=== PATIENT | female | born 1955 | race Caucasian/White ===

== ENCOUNTER 2024-11-08 17:57 | Emergency (ER) | payer MEDICARE, MEDICAID, OTHER ==
[~2024-11-08] VITALS: Ht 167.6 cm; Wt 64.3 kg
[2024-11-08 17:59] VITALS: TEMP 97.6
[2024-11-08] MEDS: normal saline 1000ML IV soln IVB ONE (18:20)
--- NOTE | 2024-11-08 18:26 | Physician Documentation ---
History of Present Illness ~ Chief Complaint: Syncope Stated Complaint: NEAR SYNCOPE Time Seen by MD: 18:12 OK to notify your PCP?: Yes HPI This is a pleasant 69-year-old female with a prior history of myocardial infarction, hypotension, who presents for evaluation of near syncopal episode. She states that she was sitting in the chair, resting, stood up and I just went down and pulled. She did not actually lose consciousness. She reports that her legs felt like jelly. The particular palliating or aggravating factors. Did report shortness a breath accompanying this event. She normally is not experiencing shortness a breath. It has no chest pain. He states that she has not had a chest pain with her prior myocardial infarctions but are the jaw pain. She is not experiencing jaw pain today similar to that, but rather experiencing jaw pain from pulled teeth because she is getting false teeth now. Denies any fever, but does report nausea vomiting diarrhea for the last several days. Reports diffuse abdominal pain. Denies any infectious exposure. She denies any concerns for tobacco, alcohol or illicit substances use Medication Reconciliation Allergies: Coded Allergies: gabapentin (Verified Allergy, Mild, 11/08/24) Review of Systems ROS 10 point review of systems was performed and unless noted above in HPI is negative for acute process/complaint. Physical Exam Vital Signs: Temperature: 97.6, Heart Rate: 61, Respiratory Rate: 18, BP: 132/84, Pulse Oximetry: 98, Weight: 64.300 Physical Exam GENERAL: Awake, alert, oriented, GCS 15, no apparent distress, non-toxic appearing, answers questions, follows commands appropriately. Examined in bed 1. HEENT: Atraumatic, normocephalic, pupils equal, extraocular muscles intact, sclerae anicteric, mucus membranes moist, oropharynx is clear, no stridor. NECK: supple, full active range of motion, trachea midline, no thyromegaly, no lymphadenopathy, no JVD. CARDIOVASCULAR: regular rate/rhythm, no murmurs/gallops/rubs, Pulses are 2+ in all extremities and symmetric. Capillary refill less than 2 seconds. PULMONARY: Nonlabored, good air movement ,no respiratory distress, speaking in full sentences, clear to auscultation bilaterally, no wheezing, no ronchi, no rales, no accessory muscle use. GASTROINTESTINAL: Soft, diffusely tender to palpation, non-distended, normal active bowel sounds, no organomegaly, no pulsatile masses, no CVA tenderness. NEUROLOGIC: Lucid with normal mental status. Normal facial symmetry. Moves all extremities symmetrically and with purpose. No truncal ataxia. Speech is fluid without evidence of dysarthria or aphasia, no focal deficits appreciated. MUSCULOSKELETAL: There is full range of motion of all extremities. There is no joint pain or joint swelling or joint erythema. There is no muscle pain or tenderness or swelling. EXTREMITIES: warm, well-perfused, no cyanosis, no clubbing, no edema, no acute deformities. Skin: warm, dry, no rashes or lesions, no jaundice, no petechiae orpurpura. No ecchymosis. PSYCHIATRIC: Normal affect, normal insight, normal concentration. Focused exam: That there is no guarding or rebound Progress Results/Orders Results/Orders Orders - JOSE CASSIDY DO Chest,Single View (11/08/24 18:32) Monitor (11/08/24 18:17) Saline Lock (11/08/24 18:17) Cult Urine + [place] [address] (11/08/24 23:06) Completed Orders - JOSE CASSIDY DO Electrocardiogram (11/08/24 18:17) Cbc/Diff (11/08/24 18:17) CK (11/08/24 18:17) Lipase (11/08/24 18:17) PHOS (11/08/24 18:17) Chest,Single View (11/08/24 18:32) PBNP (11/08/24 18:17) MG (11/08/24 18:17) Normal Saline 1000ml (0.9% Sodium Chlori (11/08/24 18:20) CMP (11/08/24 18:17) Hs Troponin I W Calculations (11/08/24 18:17) Hs Troponin I W Calculations (11/08/24 20:17) Hs Troponin I W Calculations (11/08/24 21:17) Ethanol (11/08/24 18:21) Drug Screen, Urine (11/08/24 18:21) Ketorolac Trometh 15mg/Ml Vial (Toradol (11/08/24 20:35) Ua W/Microscopic, Cult If Ind (11/08/24 22:00) Ceftriaxone/V0f-Vhaisjuz 1gm (Rocephin 1 (11/08/24 23:25) * Miscellaneous Nursing Orders (11/09/24 00:26) Medications Received in ER Medications (Trade) Dose Ordered Sig/Kathy Route PRN Reason Start Time Stop Time Status Last Admin Dose Admin Ceftriaxone Sodium 50 ml @ 100 mls/hr ONCE ONCE IV 11/08/24 23:25 11/08/24 23:54 DC 11/08/24 23:37 100 MLS/HR Vital Signs 11/08/24 11/08/24 11/08/24 11/08/24 17:59 19:30 19:31 20:48 Temp 97.6 Pulse 61 61 56 Resp 18 16 16 B/P (MAP) 132/84 141/79 (99) 155/82 (106) Pulse Ox 98 98 98 11/08/24 11/08/24 11/09/24 22:18 23:25 01:08 Pulse 73 68 65 Resp 17 18 16 B/P (MAP) 185/90 (121) 123/63 (83) 116/70 Pulse Ox 97 98 100 Laboratory Tests Test 11/08/24 18:29 11/08/24 20:24 11/08/24 21:14 11/08/24 22:00 White Blood Count 6.6 Red Blood Count 3.77 L Hemoglobin 11.4 L Hematocrit 33.5 L Mean Corpuscular Volume 88.9 Mean Corpuscular Hemoglobin 30.3 Mean Corpuscular Hemoglobin Concent 34.1 Red Cell Distribution Width 12.5 Platelet Count 154 Mean Platelet Volume 9.5 Neutrophils (%) (Auto) 58.7 Lymphocytes (%) (Auto) 29.9 Monocytes (%) (Auto) 8.6 Eosinophils (%) (Auto) 1.9 Basophils (%) (Auto) 0.9 Neutrophils # (Auto) 3.9 Lymphocytes # (Auto) 2.0 Monocytes # (Auto) 0.6 Eosinophils # (Auto) 0.1 Basophils # (Auto) 0.1 CBC Comment Sodium Level 132 L Potassium Level 3.7 Chloride Level 101 Carbon Dioxide Level 23.6 L Anion Gap 7 L Blood Urea Nitrogen 12 Creatinine 1.28 H Estimated GFR/1.73 m2 42 BUN/Creatinine Ratio 9.4 L Glucose Level 99 Calcium Level 8.5 Phosphorus Level 2.8 Magnesium Level 1.5 Total Bilirubin 0.4 Aspartate Amino Transf (AST/SGOT) 23 Alanine Aminotransferase (ALT/SGPT) 18 Alkaline Phosphatase 58 Total Creatine Kinase 114 Troponin I High Sensitivity 5 7 7 Pro-B-Type Natriuretic Peptide 631 H Total Protein 5.6 L Albumin 3.1 L Globulin 2.5 L Albumin/Globulin Ratio 1.2 Lipase 20 Chemistry Comments Ethyl Alcohol Level < 10 Troponin I High Sens Percent Delta 40 0 Troponin I Hi Sens Absolute Change 2 0 Urine Specimen Description Cln catch midstream Urine Color Yellow Urine Clarity Clear Urine pH 6.0 Urine Specific [place] 1.010 Urine Protein Negative Urine Glucose (UA) Negative Urine Ketones Trace H Urine Occult Blood Negative Urine Nitrite Positive H Urine Bilirubin Negative Urine Urobilinogen 0.2 Urine Leukocyte Esterase Small H Urine RBC 0-2 Urine WBC 10-20 H Urine WBC Clumps Few Urine Squamous Epithelial Cells Moderate Urine Bacteria 4+ Urine Hyaline Casts 3-5 Urine Mucus Few Urine Culture Indicated Indicated Volume Urine Centrifuged 10 ml Urine Comment Urine Opiates Screen Positive Urine Methadone Screen Negative Urine Fentanyl Screen Negative Urine Barbiturates Screen Negative Urine Phencyclidine Screen Negative Urine Amphetamines Screen Negative Urine Benzodiazepines Screen Negative Urine Cocaine Screen Negative Urine Cannabinoids Screen Positive Drug Screen Comment Microbiology Date/Time Source Procedure Growth Status 11/08/24 23:06 Urine Clean Catch Midstream Urine Culture - Preliminary Culture received. Resulted EKG/XRAY/CT/US/VASC/MRI EKG : Additional Comment EKG was obtained and interpreted by myself showing sinus bradycardia, rate of 52, normal MS interval, wide QRS with a right bundle, no QT prolongation, normal axis, there was no evidence of STEMI. Medical Decision Making Findings Facility Status: [facility], [facility] process The plan was discussed with the patient, who demonstrates clear understanding of the plan and is in agreement with the plan unless otherwise noted in the chart. All questions have been answered, all concerns were addressed unless otherwise documented. I was available throughout their ED stay for frequent reassessment and questions. Differential Diagnoses (considered and possible or likely): [Orthostatic near- syncope, dehydration, electrolyte derangement, less likely vasovagal event, less likely malignant arrhythmia. ACS has been considerably less likely. So I have considerably PE, however she carries no risk factors.] ??Differential Diagnoses (considered and unlikely, not requiring evaluation currently): [Aortic/great vessels dissection was considered but it is unlikely based on absence of ripping, tearing, migratory chest pain, absence of syncope or focal neurologic deficits, physical examination indicating equal and symmetric pulses.] MDM Data Please see HPI for the following: Independent Historians and external Records Review. Historian: [Patient] Independent Historians: ?[EMS] Medication Management: [Reviewed medication list] Social History and determinants: [Reviewed] Please see the body of the note for the following: Any independent interpretations of ECG, imaging studies. All vitals signs/haemodynamics, ordered tests were independently reviewed and interpreted by myself. Nursing triage complaint and vitals reviewed, additional nursing notes were reviewed as available and I agree unless otherwise noted or documented in contradiction in the chart Vital Signs: Independently reviewed Labs: Independently interpreted Imaging: Independently interpreted Old Medical Records: Independently reviewed, see [facility] for relevant summary and information Pulse Oximetry: [98%] interpreted as [normal on room air] by me [Clerical Administrator: Bradycardic Rate, Regular rhythm, no ectopy, sinus bradycardia. reviewed and interpreted by me] Additionally notably showing: [Hemodynamics reviewed. The patient isn't febrile, not tachycardic, no evidence of hypotension respiratory distress. Laboratory studies show very mild anemia. No leukocytosis. Chemistry notable for slightly elevated creatinine. BNP minimally elevated. Troponins are negative. Urine drug screen is positive for THC and iatrogenic with the provided opioids. UA is concerning for UTI. Chest x-ray was obtained showing cardiomegaly.] Tests considered but not ordered include: [Advanced Imaging does not appear to be necessary] Social Determinants of Health Impact: Patient was evaluated in [facility], [facility] [place] healthcare due to below par ratio of patient to medical providers. [] Comorbid Conditions Impacting Present Evaluation and Care/Treatment: [Multiple, see list] Management Discussions with other Healthcare Providers: [None] Treatment and Disposition Medication Management (Given or considered): [Initial dose of antibiotics and fluids]. See EMR for details Consideration for Hospitalization/Escalation/Deescalation of Care: Admission for observation has been considered, [however the patient is able to tolerate p.o., their symptoms are controlled, they are able to rely on oral medications, and their chief complaint/diagnosis can be managed on outpatient basis.] ?ED Course:?[No clinical deterioration] ?Shared decision making:?[Patient is hemodynamically stable for discharge home with follow with their primary care provider. [ ] Specific and cautious return precautions provided and discussed with full understanding. Any incidental findings were also discussed and follow up recommendations given. [] All questions answered. Patient/family were able to verbalize back return precautions. Patient/family agree to plan. Copies of imaging and laboratory studies were provided.] Code status:?FULL Please see the full Electronic Medical Record for full details of nursing documentation, medications list, other records of complete past medical history and conditions, vital signs, laboratory studies, and any radiologic study interpretations by radiologists. Portions of this note were completed using [employer] dictation software and as a result there may exist minor errors in spelling. I have reviewed elements of past family and social history and agree as included in note. Departure Disposition: 01 HOME / SELF CARE / HOMELESS Impression: Primary Impression: Generalized weakness Additional Impressions: Dizziness Pre-syncope Urinary tract infection Condition: Improved Discharge Instructions: Near-Syncope, Urinary Tract Infection, Adult Referrals: NO PRIMARY CARE PROVIDER (PCP) Education Educated: Patient Educated regarding: diagnosis, treatment, prognosis, need for follow up Signature Scribe Signature: No scribe Attestation: This note accurately reflects clinical decisions, work performed by myself, Jose Cassidy, JOSE GALEANA DO Nov 08, 2024 18:26
--- NOTE | 2024-11-08 18:34 | ELECTROCARDIOGRAPH REPORT ---
[facility] Test Date: 2024-11-08 Test Time: 18:32:02 Pat Name: ROSALINDA MARISCAL Department: EMERGENCY ROOM Patient ID: [facility]-[id number] Room: Gender: F Physician Practice Consultant: : [id number] Requested By: SHRUTI CASSIDY Order Number: [id number] Reading MD: Dr. Torito Denise Measurements Intervals [place] Rate: 52 P: 74 FL: 149 QRS: 59 QRSD: 145 T: 43 QT: 464 QTc: 432 Interpretive Statements Sinus bradycardia Right bundle branch block Electronically Signed On 11-10-2024 19:28:[address] Torito Denise Please click the below link to view image of tracing.
--- NOTE | 2024-11-08 18:45 | RADIOLOGY REPORT ---
CHEST RADIOGRAPH Indication: weakness Technique: DI CHEST,SINGLE VIEW COMPARISON: None FINDINGS: The cardiac silhouette is enlarged. The lungs demonstrate bilateral patchy airspace opacities. The pu lmonary vasculature is prominent. There is no pleural effusion. There is no pneumothorax. Left humeral head / neck fracture deformity of indeterminate age. IMPRESSION: As above
[2024-11-08 18:52] LABS: MEAN PLATELET VOLUME 9.5 FL (7.4-10.4); RED CELL DISTRIBUTION WIDTH 12.5 % (11.5-14.5)
[2024-11-08 19:04] LABS: CREATININE 1.28 MG/DL (0.40-0.90); TOTAL CARBON DIOXIDE 23.6 MMOL/L (24-32); eCRCL 40 ML/MIN; eGFR 42 ML/MIN
[2024-11-08 19:12] LABS: PHOSPHORUS 2.8 MG/DL (2.3-4.5); PRO BRAIN NATRIURETIC PEPTIDE 631 PG/ML (0-125)
[2024-11-08 19:17] LABS: ETHANOL < 10 MG/DL (<10)
[2024-11-08] MEDS: ketorolac trometh 15mg/ml vial 15 MG/ML ML IV ONE (20:36)
[2024-11-08 22:47] LABS: LEUKOCYTE ESTERASE ,URINE SMALL (Neg); NITRITES, URINE POSITIVE (Neg); OCCULT BLOOD,URINE NEGATIVE (Neg)
[2024-11-08 22:57] LABS: UA COLLECTION TYPE CLN CATCH MIDSTREAM
[2024-11-08 23:04] LABS: MUCUS STRANDS FEW /LPF (Neg); SQUAMOUS EPITHELIAL CELL,UR MODERATE /LPF (FEW)
[2024-11-08 23:05] LABS: WBC CLUMPS,URINE FEW /HPF (NEGATIVE)
[2024-11-08 23:13] LABS: URINE AMPHETAMINE SCREEN NEGATIVE (Neg); URINE BARBITUATE SCREEN NEGATIVE (Neg); URINE BENZODIAZEPINES SCREEN NEGATIVE (Neg); URINE CANNABINOID SCREEN POSITIVE (Neg); URINE COCAINE SCREEN NEGATIVE (Neg); URINE METHADONE SCREEN NEGATIVE (Neg); URINE OPIATE SCREEN POSITIVE (Neg); URINE PHENCYCLIDINE SCREEN NEGATIVE (Neg)
[2024-11-08] MEDS: CefTRIAXone/D5W-Rocephin 1gm 50 ML IV ONE (23:37)
[2024-11-09 01:08] VITALS: BP 116/70; PULSE 65; RESP 16; O2SAT 100
== END 2024-11-09 01:19 | disposition home or self-care (01) ==
LOC: ER 17:58
DX: R55 Syncope and collapse (principal); R53.1 Weakness; R42 Dizziness and giddiness; N39.0 Urinary tract infection, site not specified; I25.2 Old myocardial infarction; R10.84 Generalized abdominal pain; R06.02 Shortness of breath; Z88.8 Allergy status to other drugs, medicaments and biological substances
CPT/HCPCS: 36415; 71045; 80053; 80305; 81001; 82550; 83690; 83735; 83880; 84100; 84484; 85025; 87077; 87088; 87186; 93005; 96361; 96365; 96375; 99285; G0480; J0696; J1885; J7030; 80320